=== PATIENT | female | born 1950 | race Caucasian/White ===

== ENCOUNTER 2020-04-29 18:28 | Emergency (ER) | payer OTHER ==
[~2020-04-29] VITALS: Ht 154.9 cm; Wt 49.9 kg
[~2020-04-29 18:28] MED LIST: ATENOLOL 25 MG25 M1 PO; AVELOX 400 MG400 MG PO; COMBIVENT IH; HCTZ; HCTZ PO; K-DUR 20 MEQ T20 MEQ PO; KLOR-CON 1010 MEQ; MOBIC7.5 MG; NEXIUM10 MG; PREDNISONE 20 M20 M1; QVAR HFA 440 MCG/UN1 IH; ZOCOR 10 MG TAB10 MG
[2020-04-29 19:43] LABS: ABSOLUTE NEUTROPHILS 2.7 thou/uL (1.4-8.2); BASOPHILS 0.5 % (0.0-2.0); EOSINOPHILS 3.8 % (0.0-3.0); HEMATOCRIT 37.9 % (37.0-47.0); HEMOGLOBIN 12.7 gm/dL (12.0-15.0); LYMPHOCYTES 32.6 % (24.0-44.0); MCH 31.6 pg (26.0-34.0); MCHC 33.4 g/dL (28.0-37.0); MCV 94.7 fL (80.0-100.0); MONOCYTES 7.2 % (1.0-8.0); PLATELET COUNT 228 thou/uL (150-400); POLYS 55.9 % (36.0-66.0); RDW 12.9 % (10.5-14.5); WBC 4.8 thou/uL (4.0-11.0)
[2020-04-29 19:57] LABS: ANION GAP 12 mmol/L (7-16); BUN 28 mg/dL (7-18); CALCIUM 8.8 mg/dL (8.5-10.1); CHLORIDE 101 mmol/L (98-107); CO2 25 mmol/L (21-32); CREATININE 0.9 mg/dL (0.6-1.0); GLUCOSE 174 mg/dL (74-106); POTASSIUM 3.5 mmol/L (3.5-5.1); SODIUM 138 mmol/L (136-145)
[2020-04-29 20:09] LABS: ALBUMIN 3.6 g/dL (3.4-5.0); SGOT 24 U/L (15-37); SGPT 29 U/L (30-65); TOTAL BILIRUBIN 0.5 mg/dL (0.2-1.0); TOTAL PROTEIN 6.8 g/dL (6.4-8.2); TROPONIN-I <0.06 ng/mL (<0.06)
[2020-04-29 21:25] LABS: URINE BILIRUBIN NEGATIVE (Negative); URINE BLOOD 1+ (Negative); URINE CLARITY CLEAR; URINE COLOR YELLOW; URINE GLUCOSE-RANDOM* NEGATIVE (Negative); URINE KETONES NEGATIVE (Negative); URINE NITRITE-REFLEX NEGATIVE (Negative); URINE PROTEIN (DIPSTICK) NEGATIVE (Negative); URINE SPECIFIC GRAVITY <= 1.005 (1.005-1.035); URINE UROBILINOGEN 0.2 E.U./dl (0.2-1.0)
[2020-04-29 21:35] LABS: URINE LEUKOCYTES-REFLEX 2+ (Negative)
[2020-04-29 21:37] LABS: BACTERIA-REFLEX 1-9 Few /HPF (None Seen); CASTS None Seen /LPF (None Seen); CRYSTALS None Seen /LPF (None Seen); MUCUS 4-6 Moderate strn/LPF (None Seen); SQUAMOUS 0-3 Few /LPF (0-3); URINE RBC 3-10 Few /HPF (0-2); URINE WBC-REFLEX 6-15 Few /HPF (0-5)
[2020-04-29] MEDS ORDERED: MECLIZINE HCL25 M1 PO (21:47)
[2020-04-29 22:06] VITALS: BP 134/68
--- NOTE | 2020-04-30 07:36 | EKG ---
[place] [address] [facility] [place] [address] ELECTROCARDIOGRAM REPORT Name: ELIAS MENODZA Room #: DEP [facility]#: [id number] Admission: 04/29/20 Attend Phys: Discharge: 04/29/20 Date of : 54 Report #: [id number] [facility] ED Test Date: 2020-04-29 Test Time: 20:17:24 Pat Name: ELIAS MENDOZA Department: Room: Gender: F Geologist: joe vazquez rn : 1950 Requested By: Padma Romo Order Number: [id number] MD: Jayjay Andres Measurements Intervals [place] Rate: 71 P: 68 OR: 205 QRS: 74 QRSD: 160 T: 41 QT: 411 QTc: 447 Interpretive Statements Sinus rhythm Probable left atrial enlargement Compared to ECG 03/24/2011 20:08:15 Sinus tachycardia no longer present Electronically Signed On 04-30-2020 7:35:57 COMMUTATOR OPERATOR by Jayjay Andres [email or web address] <ELECTRONICALLY SIGNED> By: Jayjay Andres MD, [facility] 04/30/20 0735 16 16 Jayjay Andres MD, FACC /EPI
== END 2020-04-29 22:07 | disposition home or self-care (01) ==
LOC: ER 18:28
PROVIDERS: Emergency Medicine
DX: U07.1 COVID-19 (principal); R42 Dizziness and giddiness; I10 Essential (primary) hypertension; E78.00 Pure hypercholesterolemia, unspecified; K21.9 Gastro-esophageal reflux disease without esophagitis; F17.210 Nicotine dependence, cigarettes, uncomplicated; Z79.899 Other long term (current) drug therapy; Z79.2 Long term (current) use of antibiotics; Z88.5 Allergy status to narcotic agent